=== PATIENT | female | born 1990 | race Caucasian/White ===

== ENCOUNTER 2023-05-12 21:13 | Emergency (ER) | payer OTHER, SELFPAY ==
[2023-05-12 21:26] VITALS: BP 118/65; PULSE 102; RESP 40; TEMP 36.3; O2SAT 93; BMI 33.5
[2023-05-12] MEDS: IPRAT-ALBUT 0.5-2.5 MG/3 ML NEB 1 NEB IH (21:42)
--- NOTE | 2023-05-12 21:43 | ED.GENADULT ---
HPI - General Adult General Chief complaint: Shortness of Breath/Dyspnea Stated complaint: Trouble breathing,hot and cold flashes Time Seen by Provider: 05/12/23 21:38 History of Present Illness HPI narrative: comes to ed with a cough, wheezing, sob, muscle aches, fever up to 100 ., increased thirst, fatigued. has had worsening sx since . took advil at 1930, 400 mg. has increase in sob with any activity. 32-year-old woman presenting to the emergency department with increasing difficulty breathing. She has been coughing wheezing feeling short of breath generally achy temperature measured to around 100. Generally and exertionally fatigue. This is now full 2nd day of symptoms. Has taken ibuprofen. No particular exposures. She has not received COVID vaccine series. Does note a history of bronchitis but no history of pneumonia or reactive airway. No history of intubation. With bronchitis in the past she has received inhalers. Does smoke cigarettes. Sounds to be a Related Data Home Medications Medication Instructions Recorded Confirmed citalopram 40 mg tablet 40 mg PO QAM 05/12/23 05/12/23 Allergies Allergy/AdvReac Type Severity Reaction Status Date / Time No Known Drug Allergies Allergy Verified 05/12/23 21:25 Review of Systems Status of ROS: Reports: 6 or more systems reviewed and unremarkable except as noted in History and below PFSH PFS Social History Smoking Status: Current every day smoker What tobacco products do you use: cigarettes Smoking packs per day: 0.5 Smoking cigarettes per day: 10.0 Years smoked: 10 Smoking pack-years: 5.00 Do you use any of these nicotine containing products: None Second hand tobacco smoke exposure: Yes How often do you have a drink containing alcohol: never How often do you have six or more drinks on one occasion: Never AUDIT-C Alcohol total score: 0 Non-prescribed substance use: denies use service: Yes Exam Narrative: Exam Narrative: Here with significant other. She is pleasant. Short hair is dyed with multiple colors of blue/teal. She is notably tachypneic and labored in her breathing. Cannot complete a lengthy sentence; 3 word orthopnea. Some nasopharyngeal congestion. On lung auscultation however diffuse crepitus and end-expiratory wheezing. Diminished breath sounds I think in the left upper chest. Heart is tachycardic in a regular rhythm. Abdomen soft. She is well-perfused peripherally. Skin is clammy. Oropharynx is mildly erythematous without cervical lymph adenopathy and neck is supple Const: Vital Signs, click to edit/add: Vital Signs - 24 hr 05/12/23 21:26 05/12/23 21:44 05/12/23 22:30 Temperature 97.4 F L Pulse Rate [Pulse Oximeter] 102 H 110 H Respiratory Rate 40 H 32 H Blood Pressure [Le ft Upper Arm] 119/74 Blood Pressure [Ri ght Upper Arm] 118/65 Pulse Oximetry 93 93 94 Oxygen Delivery Me thod Room Air Room Air Oxygen Flow Rate 05/12/23 22:30 05/12/23 22:42 Temperature Pulse Rate [Pulse Oximeter] Respiratory Rate 42 H Blood Pressure [Le ft Upper Arm] Blood Pressure [Ri ght Upper Arm] 115/63 Pulse Oximetry 100 97 Oxygen Delivery Me thod Blow By Nasal Cannula Oxygen Flow Rate 5 2 Documenting provider has reviewed patient's vital signs: yes Course Vital Signs Vital signs: Initial Vital Signs Temperature 97.4 F L 05/12/23 21:26 Temperature Source Temporal Artery Scan 05/12/23 21:26 Pulse Rate 102 H 05/12/23 21:26 Respiratory Rate 40 H 05/12/23 21:26 Blood Pressure 118/65 05/12/23 21:26 Blood Pressure Mean 82 05/12/23 21:26 Blood Pressure Position Supine 05/12/23 21:26 Pulse Oximetry 93 05/12/23 21:26 Oxygen Delivery Method Room Air 05/12/23 21:26 Vital Signs Temperature 97.4 F L 05/12/23 21:26 Pulse Rate 102 H 05/12/23 21:26 Respiratory Rate 40 H 05/12/23 21:26 Blood Pressure 118/65 05/12/23 21:26 Pulse Oximetry 93 05/12/23 21:26 Oxygen Delivery Method Room Air 05/12/23 21:26 Temperature 97.4 F L 05/12/23 21:26 Pulse Rate 110 H 05/12/23 22:30 Respiratory Rate 42 H 05/12/23 22:30 Blood Pressure 115/63 05/12/23 22:30 Pulse Oximetry 97 05/12/23 22:42 Oxygen Delivery Method Nasal Cannula 05/12/23 22:42 Oxygen Flow Rate 2 05/12/23 22:42 Medical Decision Making MDM Narrative Medical decision making narrative: Differential includes pneumonia, viral URI, reactive airway, pulmonary embolus, ischemic cardiac event. Elevated temperature of suggest infectious etiology. Will be screening for COVID given increased prevalence in the community and recent severe cases here. DuoNeb, labs and chest x-ray pending. Chest x-ray by my read looks unremarkable. White count is little bit elevated at 14.4 as is the CRP. Anticipating potential admission given initial presentation procalcitonin was also collected. Blood cultures collected as well. Screening negative for COVID and influenza. Also negative for RSV After initial DuoNeb does seem more relaxed. Pulse ox does not improve a whole lot. Reauscultation with mild improvement in breath sounds. Still with end-expiratory wheezes and and inspiratory crepitus. Has been also given supplemental oxygen via nasal cannula. Prednisone. Given nebulization treatment, albuterol. Further less labored in breathing. Turned off of oxygen and maintaining saturations. The may be some COPD here. Did discuss further evaluation in this regard. This may be partially exacerbation of COPD as well as reactive airway in the setting of a viral illness. Encouraged toward smoking cessation --sounds like significant other would be on board but politely Ms. Queen does not appear terribly interested. Eager to leave the department. See patient discharge plan Lab Data Lab results reviewed: Yes I reviewed the patient's lab results Labs: Lab Results 05/12/23 05/12/23 Range/Units 21:44 21:55 WBC 14.43 H (4.50-11.00) K/uL RBC 4.28 (4.00-5.20) m/uL Hgb 11.7 L (12.0-16.0) gm/dL Hct 36.5 (33.0-51.0) % MCV 85 (80-100) fL MCH 27 (26-34) pg MCHC 32 (32-36) gm/dL RDW Coeff of Susan 13.5 (11.5-15.5) % Plt Count 348 (140-440) K/uL Neut % (Auto) 83.8 H (42.0-72.0) % Lymph % (Auto) 10.5 L (20-44) % [place] % (Auto) 4.0 (0.0-11.0) % Eos % (Auto) 0.4 (0.0-7.0) % Baso % (Auto) 0.1 (0.0-3.0) % Neut # (Auto) 12.10 H (1.7-7.0) K/uL Lymph # (Auto) 1.50 (0.90-2.90) K/uL [place] # (Auto) 0.60 (0.00-0.90) K/UL Eos # (Auto) 0.10 (0.00-0.50) K/uL Baso # (Auto) 0.00 (0.00-0.30) K/uL Abs Immat Gran (auto) 0.20 (0.00-0.30) K/uL Imm/Tot Granulo (auto) 1.2 % D-Dimer Quant (PE/DVT) 0.37 (0.00-0.50) ug/ml VBG pH 7.382 (7.32-7.43) VBG pCO2 38 L (40-50) mmHG VBG pO2 54.3 H (25-47) mmHG VBG HCO3 23 (21-28) mmol/L Sodium 134 L (135-149) mmol/L Potassium 4.0 (3.6-5.1) mmol/L Chloride 104 (96-114) mmol/L Carbon Dioxide 21 (20-32) mmol/L BUN 14 (5-24) mg/dL Creatinine 1.0 (0.5-1.5) mg/dL Estimated Creat Clear 69.74 Estimated GFR 77 ml/min Glucose 128 H (60-115) mg/dL Lactate 1.0 (0.5-1.9) mmol/L Calcium 9.4 (8.4-10.6) mg/dL Troponin I < 0.01 L (0.01-0.04) ng/mL C-Reactive Protein 3.2 H (0.5-1.0) mg/dL NT-Pro-B Natriuret Pep < 20 pg/mL Procalcitonin 0.06 (<0.50) ng/mL SARS-CoV-2 (PCR) Negative SARS-CoV-2 (Negative) Influenza Type A (PCR) Negative PCR FLU A (Negative) Influenza Type B (PCR) Negative PCR FLU B (Negative) RSV (PCR) Negative PCR RSV (Negative) ECG Data Attestation: I personally reviewed and interpreted this ECG as follows: (Sinus tachycardia. Rate of 118) Discharge Plan Discharge Clinical Impression: Reactive airway disease, URI (upper respiratory infection) Patient Disposition: Home w/ Parent or Adult Condition: Improved Additional Instructions: Might benefit from some pseudoephedrine for drying/decongestion. But please if you have not already, follow-up for formal pulmonary function testing. This just means blowing into a tube so that a proper assessment can be made of your lung function so that you can receive optimal treatment so that we can help limit injury to your lungs. And otherwise do what can to quit smoking. Probably have to replace it with some other activity. Prednisone and albuterol from [facility] Prescriptions: No Action citalopram 40 mg tablet 40 mg PO QAM Follow Up/Referrals: Dolly Coulter MD [Primary Care Provider] - Stand Alone Forms: Powered by [employer] Instructions
[2023-05-12 21:44] VITALS: O2SAT 93
--- NOTE | 2023-05-12 21:44 | CRLHL7_ITS ---
For Patients: As a result of the Cures Act, medical imaging exams and procedure reports are released immediately into your electronic medical record. You may view this report before your referring provider. If you have questions, please contact your health care provider. INDICATION: Dyspnea, wheeze, fever TECHNIQUE: Chest 1 view. Permanently recorded images are archived. COMPARISON: None. FINDINGS: Cardiovascular and mediastinum: Heart size and vasculature are normal in caliber and appearance. Lungs and pleural spaces: The lungs are clear. No pleural effusion or pneumothorax. Bones and soft tissues: Unremarkable for age. IMPRESSION: No evidence of an acute pulmonary process. Dictated by Dominick Navarrete MD @ 05/12/2023 10:24:36 PM (Electronically Signed)
[2023-05-12 22:06] LABS: HCO3 VBG 23 mmol/L (21-28); PCO2 VBG 38 mmHG (40-50); PO2 VBG 54.3 mmHG (25-47); pH VBG 7.382 (7.32-7.43)
--- NOTE | 2023-05-12 22:19 | ED.NURSE ---
did improve with much less wheezing after duo neb. will observe and start 02 of sats decrease. rr in 30s. sats 94 % on r/a. dr fischer was in to see after neb done.
[2023-05-12 22:23] LABS: Chloride* 104 mmol/L (96-114); Sodium* 134 mmol/L (135-149)
[2023-05-12 22:25] LABS: Basophils Percent Auto 0.1 % (0.0-3.0); Eosinophils Percent Auto 0.4 % (0.0-7.0); Est. Creatinine Clearance* 69.74; Estimated Glomerular Filt Rate 77 ml/min; Hematocrit 36.5 % (33.0-51.0); Hemoglobin* 11.7 gm/dL (12.0-16.0); Immature Granulocytes Pct Auto 1.2 %; Lymphocytes Percent Auto 10.5 % (20-44); Mean Corpuscular HGB Conc 32 gm/dL (32-36); Mean Corpuscular Hemoglobin 27 pg (26-34); Mean Corpuscular Volume 85 fL (80-100); Neutrophils Percent Auto 83.8 % (42.0-72.0); Platelet Count* 348 K/uL (140-440); RDW Coefficient of Variation % 13.5 % (11.5-15.5); Red Blood Count 4.28 m/uL (4.00-5.20); White Blood Count* 14.43 K/uL (4.50-11.00)
[2023-05-12 22:26] LABS: Blood Urea Nitrogen* 14 mg/dL (5-24); Carbon Dioxide* 21 mmol/L (20-32)
[2023-05-12 22:27] LABS: Calcium* 9.4 mg/dL (8.4-10.6); Glucose* 128 mg/dL (60-115)
[2023-05-12 22:29] LABS: C Reactive Protein* 3.2 mg/dL (0.5-1.0)
[2023-05-12 22:30] VITALS: BP 115/63; BP 119/74; PULSE 110; RESP 32; RESP 42; O2SAT 100; O2SAT 94
[2023-05-12 22:37] LABS: NT Pro B Type NatriureticPept* < 20 pg/mL
[2023-05-12 22:38] LABS: Slide Review Reflex No
[2023-05-12 22:39] LABS: Troponin I* < 0.01 ng/mL (0.01-0.04)
[2023-05-12 22:41] LABS: PCR FLU A Negative PCR FLU A (Negative); PCR FLU B Negative PCR FLU B (Negative); PCR RSV Negative PCR RSV (Negative)
[2023-05-12 22:42] VITALS: O2SAT 97
[2023-05-12 22:43] LABS: Procalcitonin* 0.06 ng/mL (<0.50)
[2023-05-12 22:47] LABS: SARS PCR* Negative SARS-CoV-2 (Negative)
[2023-05-12 23:00] LABS: D Dimer Quantitative* 0.37 ug/ml (0.00-0.50)
[2023-05-12] MEDS: predniSONE 20 MG TABLET 60 MG PO (23:29)
[2023-05-12] MEDS: ALBUTEROL SULFATE 2.5 MG/3 ML VIAL.NEB NEB (23:29)
[2023-05-12] MEDS: predniSONE 20 MG TABLET PO (23:29)
[2023-05-12] MEDS: ACETAMINOPHEN 500 MG TABLET 1000 MG PO (23:30)
== END 2023-05-13 00:25 | disposition home or self-care (01) ==
PROVIDERS: Emergency Provider Family Medicine; PCP Obstetrics & Gynecology
DX: J45.909 Unspecified asthma, uncomplicated (principal); J06.9 Acute upper respiratory infection, unspecified
CPT/HCPCS: 36415; 71045; 80048; 82803; 83605; 83880; 84145; 84484; 85025; 85379; 86140; 87040; 87631; 93005; 94640; 94761; 99284; 99285; A9270; J7512

== ENCOUNTER 2025-01-28 06:02 | Day surgery (SDC) | payer OTHER, SELFPAY ==
[2025-01-28] VITALS (23 sets, daily range): BP systolic 105–144; BP diastolic 53–89; PULSE 74–109; RESP 14–24; TEMP 36.2–37.3; O2SAT 9–100; BMI 40.1
[2025-01-28 06:45] LABS: Hemoglobin* 11.8 gm/dL (12.0-16.0)
[2025-01-28 06:45] LABS: Ur HCG Qualitative* Negative (Negative)
[2025-01-28] MEDS: SODIUM CHLORIDE 0.9 % (FLUSH) 10 ML SYRINGE IVF (06:45)
[2025-01-28] MEDS: LACTATED RINGERS 1000 ML 1,000 ML 100 ML IV ×2 (06:45→09:11)
[2025-01-28 07:00] LABS: Creatinine* 0.9 mg/dL (0.5-1.5); Est. Creatinine Clearance* 76.06; Estimated Glomerular Filt Rate 86 ml/min
[2025-01-28] MEDS: VASOPRESSIN 20 UNIT/ML INJ INJECTION (07:15)
[2025-01-28] MEDS: CEFAZOLIN 2 GM INJ IVP (07:35)
--- NOTE | 2025-01-28 08:45 | SUR.OPER ---
right, left fallopian tubes and uterus excised at 0827, 0833, 0836 respectively
[2025-01-28] MEDS: 0.9 % SODIUM CHLORIDE 50 ml INJECTION (08:54)
--- NOTE | 2025-01-28 08:59 | W.PM.H&PU ---
History & Physical Update History & Physical Update H&P Reviewed and patient assessed: No changes noted
--- NOTE | 2025-01-28 09:09 | P.ANES_ITS ---
Anesthesia Charges Start Date/Time Anesthesia Start Date: 01/28/25 Anesthesia Start Time: 07:15 Stop Date/Time Anesthesia Stop Date: 01/28/25 Anesthesia Stop Time: 09:11 Coding CPT Codes CPT Codes: ANESTH VAGINAL HYSTERECTOMY - 09215 ([id number]) P2 - PATIENT W/MILD SYST DISEASE, QZ - ELECTRICAL AND INSTRUMENT TECHNICIAN SVC W/O GRAVEL HAULER BY
--- NOTE | 2025-01-28 09:09 | W.ANESCHARGE ---
Anesthesia Charges Start Date/Time Anesthesia Start Date: 01/28/25 Anesthesia Start Time: 07:15 Stop Date/Time Anesthesia Stop Date: 01/28/25 Anesthesia Stop Time: 09:11 Coding CPT Codes CPT Codes: ANESTH VAGINAL HYSTERECTOMY - 23976 ([id number]) P2 - PATIENT W/MILD SYST DISEASE, QZ - ENVIRONMENTAL COMPLIANCE OFFICER SVC W/O EDUCATION SPEC BY
--- NOTE | 2025-01-28 09:16 | P.GYNPRC_ITS ---
Procedure Note Date of procedure: 01/28/25 Will [facility] bill your pro fee for this procedure?: Yes Pre-op diagnosis: Menorrhagia Post-op diagnosis: Same Procedure: Total vaginal hysterectomy with bilateral salpingectomy Cystoscopy Anesthesia: MAC and spinal Complications: None Surgeon: Mara Willard MD Milling/Polishing Operator: Mari Billingsley Estimated blood loss (mL): 25 IV fluids (mL): 1,500 Urine Output (mL): 200 Pathology: specimen obtained, sent to pathology (uterus, cervix, bilateral tubes) Condition: stable Disposition: floor Findings: 1. On exam under anesthesia, the vulva was normal in appearance. Vagina and cervix were normal in appearance. Bimanual exam revealed a uterus of normal size and consistency. There were no palpable adnexal masses. 2. After removal of uterus, bilateral tubes were found to be normal in appearance. The ovaries were symmetrically enlarged without any other visualized abnormality. 3. Uterine weight was 124 g. 4. Upon cystoscopy, performed at end of procedure, there was no injury to the bladder dome and bilateral ureteral orifices were normal in appearance. The urine was stained with sodium fluorescein, confirming patency of her one remaining right ureter. Procedure Description: Procedure in detail: Patient was taken to the operating room with IV running. Spinal anesthesia was administered. She received cefazolin in preoperative prophylaxis. She was positioned in dorsal lithotomy position with her legs in candy-cane stirrups. Exam under anesthesia was performed for the above noted findings. De La Cruz catheter was inserted. Weighted speculum was inserted. Cervix was grasped along its anterior and posterior lips with thyroid Ariela clamps. The cervical vaginal junction was circumferentially infiltrated with dilute vasopressin. The cervical vaginal junction was then incised circumferentially with scalpel. The vaginal epithelium was dissected bluntly off bilateral uterosacral ligaments. Anterior colpotomy was performed sharply, and a Karen retractor was placed between the bladder and the uterus. The posterior colpotomy was performed sharply, and a long weighted speculum was placed in the cul-de-sac. Bilateral uterosacral ligaments were clamped, cut, suture ligated with 0 Vicryl, and tagged for later identification. The cardinal ligaments were serially clamped, cut, and suture ligated bilaterally with 0 Vicryl. Finally, the remnants of the broad ligament were cauterized and transected with the LigaSure Exact device, ultimately freeing the uterus from its attachments to the pelvis. The uterus was delivered through the vagina. Bilateral ovaries were enlarged but otherwise normal in appearance. Attention was turned to the pedicle of the right Fallopian tube. This was grasped with Jose clamp and was followed out the the fimbriated end. The blood supply and mesosalpinx was cauterized and transected with the LigaSure Exact device, freeing the tube from the pelvic sidewall. Tube was sent to pathology. Hemostasis of the pedicle was achieved with cautery. This procedure was repeated on the left Fallopian tube. Hemostasis was noted. There was some bleeding along the right vaginal cuff, which was addressed with a running suture of O Vicryl. The angles of the vaginal cuff were closed with a stitch of 0 Vicryl, incorporating the distal most aspect of the uterosacral pedicle into the closure . The intervening vaginal cuff was closed with a series of [id number] sutures of 0 Vicryl. Hemostasis was noted. All instruments were removed from the vagina. De La Cruz catheter was removed from the patient's bladder. Patient was administered IV sodium fluorescein after removal of the uterus. Cystoscopy was performed, revealing the urine to be stained by sodium fluorescein. There was no injury to the bladder visualized, and dome was intact. The cystoscope was removed and the De La Cruz catheter replaced. Postoperative debrief was verbalized with OR staff, including a verification of pathology specimens to be sent as described above. Patient tolerated procedure well and was taken to recovery area in stable condition.
[2025-01-28] MEDS: fentaNYL 100 MCG/2 ML inj 50 MCG IVP ×2 (09:23→09:38)
[2025-01-28] MEDS: ACETAMINOPHEN 500 MG TABLET 1000 MG PO (11:15)
[2025-01-28] MEDS: OXYCODONE 5 MG TABLET PO (11:15)
[2025-01-28] MEDS: HYDROmorphone 0.5 mg/0.5 ml inj 0.2 MG IVP (11:44)
[2025-01-28] MEDS: SIMETHICONE 80 MG TAB.CHEW 160 MG PO (13:01)
[2025-01-28] MEDS: KETOROLAC 15 MG/ML inj IVP ×2 (15:47→20:37)
[2025-01-28] MEDS: NICOTINE 7 MG PATCH 1 PATCH TRANSDERMA (15:47)
--- NOTE | 2025-01-28 18:49 | PC.NURSE ---
End of shift: patient alert and oriented x4, VSS. on RA. tolerating a reg diet. slater patent and draining. Patient aware that it will need to be backfilled prior to DC'ing. Patient up to chair and ambulating hallways. Tolerating activity well. Patient denies N/V/SOB.
--- NOTE | 2025-01-28 18:52 | PC.NURSE ---
End of shift: patient alert and oriented, pleasant and cooperative with cares. Patients VSS, on RA. tolerating a reg diet. Patient's slater patent and draining. Patient is aware that bladder will need to be backfilled prior to DCing slater. Patient denies N/V/SOB or pain. PRN oxy, tylenol, dilauded administered x1. Patient up to chair and ambulating hallway throughout shift and tolerating activity.
[2025-01-28] MEDS: GABAPENTIN 300 MG CAPSULE PO (20:37)
[2025-01-29] MEDS: KETOROLAC 15 MG/ML inj IVP (03:15)
[2025-01-29 03:16] VITALS: BP 131/81; PULSE 80; RESP 16; TEMP 37.2
--- NOTE | 2025-01-29 06:30 | PC.NURSE ---
End of shift [id number]: A&O pleasant and cooperative. VSS. Rating pain 1-3/10. Declines need for prn medication. Tolerating pain w/ scheduled toradol. Slater removed w/ backflow of 300cc. Pt voided 300cc immediately after slater removed. Voiding the rest of shift without any issues. Minimal bleeding noted from vagina. Tolerating regular diet. Using call light appropriately.
[2025-01-29 06:38] LABS: Hemoglobin* 10.7 gm/dL (12.0-16.0)
[2025-01-29 06:50] LABS: Creatinine* 0.8 mg/dL (0.5-1.5); Est. Creatinine Clearance* 85.56; Estimated Glomerular Filt Rate 99 ml/min
[2025-01-29 07:00] VITALS: BP 136/86; PULSE 86; RESP 16; TEMP 36.9; O2SAT 99
--- NOTE | 2025-01-29 09:50 | PM.GYNDS1 ---
DS: Providers Provider Date Seen: 01/29/25 Date of admission: 01/28/25 Primary care physician: Not a Local Provider Attending Physician on discharge: Mara Willard MD Date of Discharge: 01/29/25 DS: Diagnosis Discharge Diagnosis (1) S/P vaginal hysterectomy: Status: Acute Problem details: total vaginal hysterectomy with bilateral salpingectomy and cystoscopy on 01/28/25 FINANCIAL QUANTITATIVE ANALYST-Discharge Summary Hospital Course Hospital Course Narrative: Patient is a 34 year old admitted on 01/28/25 for total vaginal hysterectomy, bilateral salpingectomy and cystoscopy. Indication for surgery: menorrhagia. Intraoperative findings were notable for cervix, uterus and bilateral Fallopian tubes normal in appearance. Ovaries enlarged bilaterally. Bladder mucosa normal in appearance. She had an uncomplicated surgery. Postoperative course has been uneventful. Vitals have been stable. She has remained afebrile. Today, on postoperative day 1, she reports the pain is well controlled. She has been able to ambulate Without difficulty. She is tolerating regular diet. She is passing flatus. De La Cruz catheter has been removed, and she is voiding without difficulty. Time Spent with Patient Time attestation: Total time spent providing and/or coordinating discharge services: Time spent: Less than 30 minutes FINANCIAL QUANTITATIVE ANALYST - Exam Physical Exam: Vital signs: Temp Pulse Resp BP Pulse Ox O2 Del Method O2 Flow Rate 98.9 F 80 16 131/81 94 Room Air 3 01/29/25 03:16 01/29/25 03:16 01/29/25 03:16 01/29/25 03:16 01/28/25 22:48 01/28/25 22:48 01/28/25 16:00 Narrative: Physical exam: Vitals as noted above. General: No acute distress Psych: Alert and oriented x 3, full affect HEENT: Normocephalic, atraumatic Heart: RRR, no M/R/G Lungs: CTAB Abdomen: Normoactive bowel sounds, soft, no tenderness, rebound, or guarding, no masses, no hepatosplenomegaly, no hernias Lower extremities: No edema or erythema FINANCIAL QUANTITATIVE ANALYST - DS: Data Data Completed and Pending Labs on day of discharge: Labs from last 24 hours 01/29/25 06:03 Hgb 10.7 L Creatinine 0.8 Estimated Creat Clear 85.56 Estimated GFR 99 Procedures Procedures: Procedures Operation Date: 01/28/25 07:15 Actual Procedure Side Surgeon p Total vaginal hysterectomy, bilateral salpingectomy, cystoscopy Not Applicable Mara Willard MD Complications: none Discharge Plan Discharge Disposition: Home w/ Parent or Adult Discharging Surgeon: Mara Willard Follow-Up Appointment: 2 [address] Willard Prescriptions: New acetaminophen 500 mg Tablet 1,000 mg PO Q6H PRNQty: 0 0RF docusate sodium 100 mg Capsule 100 mg PO BID PRN (Reason: Constipation) Qty: 0 0RF ibuprofen 600 mg Tablet 600 mg PO Q6H Qty: 0 0RF nicotine 7 mg/24 hr Patch 24 Hour 1 patch transdermal Q24H Qty: 30 1RF oxycodone 5 mg Tablet 5 mg PO Q4H PRN (Reason: Moderate Pain) Qty: 20 0RF Continued gabapentin 300 mg capsule 300 mg PO HS Allergy Relief (loratadine) 10 mg capsule 10 mg PO QDAY citalopram 40 mg tablet 40 mg PO QAM albuterol sulfate [Ventolin HFA] 90 mcg/actuation HFA aerosol inhaler 2 inh inhalation Q6H PRN Asmanex HFA 200 mcg/actuation HFA aerosol inhaler 2 inh inhalation BID Activity Detail: Do not lift anything heavier than 20 pounds for 6 weeks. Nothing per vagina for 6 weeks. Discharge Diet: Regular Patient Instructions: Vaginal Hysterectomy (DC) Follow-up: Mara Willard MD [Staff Physician] - Provider,Not a Local [Primary Care Provider] - Discharge Orders: Discharge Order (Routine); Ordered 01/29/25 Ordered By: Mara Willard
[2025-01-29] MEDS: LORATADINE 10 MG TABLET PO (09:51)
[2025-01-29] MEDS: CITALOPRAM HYDROBROMIDE 20 MG TABLET 40 MG PO (09:51)
--- NOTE | 2025-01-29 11:25 | PC.NURSE ---
Nursing Care Hours: [id number] Pt this shift slept in until 0930. Security Screener observed pt walking the [place]. VSS, pain 0.5/10. Held toradol and advised pt ok to start ibuprofen anytime. IV removed for discharge. Instructions read over with pt and family member. Pt ambulated off the unit in stable condition.
== END 2025-01-29 11:10 | disposition home or self-care (01) ==
LOC: OR 06:02 → MEDSURG 06:04
PROVIDERS: Visit Provider Obstetrics & Gynecology
PROC: (CPT 58262; principal; 2025-01-28 07:15)
DX: N92.0 Excessive and frequent menstruation with regular cycle (principal); D25.2 Subserosal leiomyoma of uterus; Z85.528 Personal history of other malignant neoplasm of kidney; Z90.5 Acquired absence of kidney; F17.210 Nicotine dependence, cigarettes, uncomplicated
CPT/HCPCS: 58262; 00944; 36415; 81025; 82565; 85018; 86850; 86900; 86901; 88307; A4314; A9270; J0690; J1100; J1171; J1630; J1885; J2250; J2371; J2704; J3010; J7120; S4990

== ENCOUNTER 2025-02-11 10:55 | Outpatient (CLI) | payer OTHER, SELFPAY | END 2025-02-11 10:56 | disposition home or self-care (01) | LOC: NFLDREF 10:56 | PROVIDERS: Visit Provider Obstetrics & Gynecology | DX: R39.15 Urgency of urination (principal) | CPT/HCPCS: 87086 ==